=== PATIENT | female | born 1995 | race Hispanic/Latino ===

== ENCOUNTER 2017-05-11 02:20 | Emergency (ER) | payer OTHER ==
[~2017-05-11] VITALS: Ht 160 cm; Wt 61.2 kg
[~2017-05-11 02:20] MED LIST: ALBUTEROL SULF8.5 GM INH; FOLIC ACID1 MG PO; HYDROXYUREA500 MG PO
--- OUTSIDE RECORDS SUMMARY | 2017-05-11 02:22 | XMS REPORT | Summary of Care ---
Author Author Bettie Wise Organization Unknown Address Unknown Phone Unavailable Care Team Providers Care [employer] Specialist Name Role Phone Bettie Wise Unavailable Unavailable APOSTOLIDOU M.D., EFFROSYNI Unavailable Unavailable YVETTE DELGADO [place], BERENICE Unavailable Unavailable Unavailable Unavailable Functional Status Name Dates Details Functional status health issues are not documented Status: Name Dates Details Cognitive status health issues are not documented Status: Problems Name Dates Details Flu vaccine need (V04.81, Z23) Status: Active Dizziness (780.4, R42) Status: Active Tooth sensitivity (521.89, K03.89) Status: Active Asthma (493.90, J45.909) Status: Active Dental filling status (V45.84, Z98.811) Status: Active Allergic rhinitis (477.9, J30.9) Status: Active Sickle cell disease, type SS (282.61, D57.1) Status: Active Vitamin D deficiency (268.9, E55.9) Status: Active Pulmonary hypertension (416.8, I27.20) Status: Active 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 Quantity: 30 APOSTOLIDOU M.D., EFFROSYNI Active Albuterol Sulfate HFA 108 MCG/ACT AERS INHALE 1-2 PUFFS EVERY 4-6 HOURS NEEDED AND DIRECTED. * Refills: 0 Active Hydroxyurea 500 MG Oral Capsule TAKE 3 CAPSULE DAILY * Quantity: 90 Refills: 3 APOSTOLIDOU M.D., EFFROSYNI * Start : 17-Nov-2016 Active Vitamin D3 2000 UNIT Oral Tablet TAKE 2 TABLET DAILY * Quantity: 180 Refills: 0 APOSTOLIDOU M.D., EFFROSYNI * Start : 26-Jan-2017 Active Allergies and Adverse Reactions Name Dates Details Reglan TABS (Allergy) Status: Denied Past Medical History Name Dates Details History of Acute chest syndrome (282.62, D57.01) Status: Resolved History of Acute stroke due to sickle-cell disease (434.91, I63.9) Status: Resolved History of diseases of blood and blood-forming organs (V12.3, Z86.2) Status: Resolved History of Problems with hearing (V41.2, H91.90) Status: Resolved History of Vision problem (V41.0, H54.7) Status: Resolved Procedures Procedure Dates Details Echo (In Office) Date: 27-Apr-2017 History of Tonsillectomy Completed History of Pilonidal Cyst Resection Completed Immunization Name Dates Details Hep B (Recombivax) on: 1993 Hep B (Recombivax) on: 1993 Hep B (Recombivax) on: 15-May-1994 MMR on: 30-Oct-1994 MMR on: 14-Oct-1997 Fluzone Quadrivalent 0.5 ML Intramuscular Suspension on: 28-Feb-2000 Fluzone Quadrivalent 0.5 ML Intramuscular Suspension on: 26-Dec-2000 Fluzone Quadrivalent 0.5 ML Intramuscular Suspension on: 17-Dec-2001 Fluzone Quadrivalent 0.5 ML Intramuscular Suspension on: 01-Feb-2004 Tdap on: 13-Aug-2005 Fluzone Quadrivalent 0.5 ML Intramuscular Suspension Lot #: [id number] on: 23-Jan-2016 Prevnar 13 Intramuscular Suspension Lot #: [id number] on: 12-Mar-2016 Family History Name Dates Details Family history of malignant neoplasm (V16.9, Z80.9) Comments: Family History Status: Active Social History Name Dates Details - Status: Name Dates Details Never smoker Vital Signs Date Test Result Details No Known Vitals to report Results Date Description Value Details Results not documented Plan of Care Name Dates Details Planned Observations Planned Goals not documented Planned Encounters Ophthalmology Referral Instructions Name Dates Details Instructions not documented Encounters Appointment; BERENICE CRAWFORD M.D. Encounter Diagnosis: Problem not documented On: 23-Jan-2016 14:00 Appointment; Clarence Hernandez M.D. Encounter Diagnosis: Problem not documented On: 29-Jan-2016 13:30 Appointment; BERENICE CRAWFORD M.D. Encounter Diagnosis: Problem not documented On: 13-Feb-2016 10:00 Appointment; BERENICE CRAWFORD M.D. Encounter Diagnosis: Problem not documented On: 29-Feb-2016 11:00 Appointment; EMILY GONZALEZ M.D. Encounter Diagnosis: Problem not documented On: 12-Mar-2016 10:40 Appointment; HOLGER JARAMILLO M.D. Encounter Diagnosis: Problem not documented On: 12-Mar-2016 11:00 Appointment; EMILY GONZALEZ M.D. Encounter Diagnosis: Problem not documented On: 23-Apr-2016 10:00 Appointment; EMILY GONZALEZ M.D. Encounter Diagnosis: Problem not documented On: 14-May-2016 11:20 Appointment; SPENCER VEGA M.D. Encounter Diagnosis: Problem not documented On: 26-May-2016 15:20 Appointment; SPENCER VEGA M.D. Encounter Diagnosis: Problem not documented On: 23-Jun-2016 14:00 Appointment; SPENCER VEGA M.D. Encounter Diagnosis: Problem not documented On: 07-Jul-2016 15:20 Appointment; SPENCER VEGA M.D. Encounter Diagnosis: Problem not documented On: 08-Sep-2016 15:00 Appointment; SPENCER VEGA M.D. Encounter Diagnosis: Problem not documented On: 22-Sep-2016 14:00 Appointment; SPENCER VEGA M.D. Encounter Diagnosis: Problem not documented On: 17-Nov-2016 14:40 Appointment; SPENCER VEGA M.D. Encounter Diagnosis: Problem not documented On: 26-Jan-2017 14:00 Appointment; SPENCER VEGA M.D. Encounter Diagnosis: Problem not documented On: 27-Apr-2017 14:00
[2017-05-11] MEDS ORDERED: SODIUM CHLORIDE 0.9% 1000ML 1,000 ML IV ONE (02:45)
[2017-05-11 02:59] LABS: BASOPHILS # (AUTO) 0.1 (0.0-0.1); BASOPHILS % 0.4 % (0.0-1.0); EOSINOPHILS # (AUTO) 0.7 (0.0-0.4); EOSINOPHILS % 3.7 % (0.0-6.0); HEMATOCRIT 24.2 % (34.2-44.1); HEMOGLOBIN 8.7 g/dL (12.0-16.0); LYMPHOCYTES # (AUTO) 4.6 (1.0-3.2); MEAN CORPUSCULAR HEMOGLOBIN 34.9 pg (28-32); MEAN CORPUSCULAR VOLUME 97.2 fL (81-99); MONOCYTES # (AUTO) 1.3 (0.2-0.8); MONOCYTES % 6.4 % (4.4-11.3); NEUTROPHILS # (AUTO) 12.4 (2.1-6.9); NEUTROPHILS % 61.4 % (38.7-80.0); PLATELET COUNT 361 x10e3/uL (140-360); RED BLOOD COUNT 2.49 x10e6/uL (3.6-5.1); RED CELL DISTRIBUTION WIDTH 19.4 % (11.7-14.4)
[2017-05-11 03:12] LABS: ALANINE AMINOTRANSFERASE 95 IU/L (0-55); ALBUMIN/GLOBULIN RATIO 1.3 (0.8-2.0); ALKALINE PHOSPHATASE 164 IU/L (40-150); ANION GAP 13.1 mmol/L (8-16); BLOOD UREA NITROGEN 9 mg/dL (7-26); BUN/CREATININE RATIO 13 (6-25); CALCIUM 9.4 mg/dL (8.4-10.2); CARBON DIOXIDE 24 mmol/L (22-29); CHLORIDE 104 mmol/L (98-107); CREATININE, SERUM 0.67 mg/dL (0.57-1.11); EST GLOMERULAR FILTRATION RATE > 60 ML/MIN (60-); GLUCOSE 109 mg/dL (74-118); POTASSIUM 4.1 mmol/L (3.5-5.1); SODIUM 137 mmol/L (136-145)
[2017-05-11] MEDS ORDERED: ONDANSETRON HCL INJ 2 MG/ML VIAL IV STA (03:25)
--- NOTE | 2017-05-11 03:58 | Diagnostic Imaging Report ---
CHEST SINGLE (PORTABLE), 05/11/2017 2:37 AM Technique: CHEST SINGLE (PORTABLE) Comparison: 02/22/2015 Clinical history: Shortness of breath Findings: Heart/mediastinum: Prominent cardiac silhouette, likely accentuated by technique. Lungs/pleural spaces: Artifact overlies the lung bases limiting evaluation. No consolidation or edema. No effusion or pneumothorax. Impression: 1. Lines/Tubes: None 2. No acute abnormality. Signed by: Dr Luz Maria Yang MD on 05/11/2017 3:55 AM
[2017-05-11 04:19] LABS: EOSINOPHILS % (MANUAL) 1 % (0-7); LYMPHOCYTES % (MANUAL) 24 % (19-48); METAMYELOCYTES % (MANUAL) 3 % (0-0); MONOCYTES % (MANUAL) 2 % (3.4-9.0); NEUTROPHILS % (MANUAL) 65 % (40-74); NUCLEATED RED BLOOD CELLS 2
[2017-05-11 04:20] LABS: ANISOCYTOSIS MODE; HYPOCHROMASIA SLIGHT; MICROCYTOSIS SLIGHT
[2017-05-11 04:21] LABS: HYPERSEGMENTED NEUTROPHILS FEW; PLATELET ESTIMATE ADEQUATE; PLATELET MORPHOLOGY COMMENT FEW LARGE; POIKILOCYTOSIS MODE; RBC MORPHOLOGY COMMENT ABNORMAL; SMUDGE CELLS FEW; TARGET CELLS FEW
[2017-05-11 04:29] VITALS: BP 111/59
== END 2017-05-11 05:03 | disposition home or self-care (01) ==
LOC: ER 02:20
DX: D57.00 Hb-SS disease with crisis, unspecified (principal); J45.909 Unspecified asthma, uncomplicated
CPT/HCPCS: 36415; 71045; 80053; 85025; 99284; J2405; J7030